=== PATIENT | male | born 1980 | race Caucasian/White ===

== ENCOUNTER 2018-03-08 03:43 | Emergency (ER) | payer SELFPAY ==
[~2018-03-08] VITALS: Ht 188 cm; Wt 85.7 kg
[2018-03-08 04:08] VITALS: BP 126/87
[2018-03-08 04:09] VITALS: BP 126/87
--- NOTE | 2018-03-08 04:13 | Emergency Room Report ---
History of Present Illness General Chief Complaint: Multiple Trauma/Fall Source: Patient Present Illness HPI Patient was brought in by girlfriend/significant other for fall with ear injury. He is been drinking tonight. Once he got here he said he doesn't want to check in. He is competent even know he has alcohol on board. He knows the risks of internal bleeding and disfiguration of his ear from his fall without treatment. I never saw the patient. Allergies: Coded Allergies: No Known Allergies (Unverified , 03/08/18) Nursing Documentation-[facility] Past Medical History: No Stated History Physical Exam Vital Signs Date Time Temp Pulse Resp B/P (MAP) Pulse Ox O2 Delivery O2 Flow Rate FiO2 03/08/18 04:03 98.0 83 16 126/87 94 Room Air 98.1 Medical Decision Making Diagnostic Impression: Primary Impression: Fall Last Vital Signs Date Time Temp Pulse Resp B/P (MAP) Pulse Ox O2 Delivery O2 Flow Rate FiO2 03/08/18 04:03 98.0 83 16 126/87 94 Room Air 98.1 Status: unchanged Disposition: LEFT W/OUT BEING SEEN Condition: Stable XIOMARA VELASQUEZ M.D. Mar 08, 2018 04:13
== END 2018-03-08 04:20 | disposition left against medical advice (07) ==
LOC: EMR 04:13
DX: S09.91XA Unspecified injury of ear, initial encounter (principal); W19.XXXA Unspecified fall, initial encounter; Y93.9 Activity, unspecified; Y92.9 Unspecified place or not applicable; Z72.89 Other problems related to lifestyle; Z53.21 Procedure and treatment not carried out due to patient leaving prior to being seen by health care provider
CPT/HCPCS: 99281